=== PATIENT | female | born 1980 | race Caucasian/White ===

== ENCOUNTER 2018-05-02 18:27 | Emergency (ER) | payer OTHER, SELFPAY ==
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
[2018-05-02 19:36] LABS: Barbiturates NEGATIVE (NEGATIVE); Benzodiazepines NEGATIVE (NEGATIVE); Cocaine NEGATIVE (NEGATIVE); METHAMPHETAM NEGATIVE (NEGATIVE); Methadone NEGATIVE (NEGATIVE); Opiates POSITIVE (NEGATIVE); Phencyclidine NEGATIVE (NEGATIVE); THC Cannibis NEGATIVE (NEGATIVE)
[2018-05-02 19:44] LABS: Urine Blood NEGATIVE (NEG); Urine Glucose NEGATIVE (NEG); Urine Protein NEGATIVE (NEG)
[2018-05-02 21:07] LABS: Protime INR 1.03
[2018-05-02 21:14] LABS: Absolute Lymphocytes (CBC) 2.1 K/uL (0.7-4.9); Absolute Monocytes 0.4 K/uL (0.1-1.3); Absolute Neutrophil 2.5 K/uL (1.8-8.0); Basophils % 1.1 % (0-1.3); Eosinophils % 4.1 % (0-4.4); Hematocrit 38.3 % (36.0-45.0); Lymphocytes % 40.1 % (15.3-44.8); MCH 32.7 pg (27.0-35.0); MCV 94.2 fL (80-100); MPV 8.4 fL (7.6-11.3); Monocytes % 8.4 % (3.3-12.3); RBC Red Blood Cell Count 4.07 M/uL (3.86-4.86)
[2018-05-02 21:19] LABS: ALT/SGPT 20 U/L (12-78); AST/SGOT 18 U/L (15-37); Albumin 3.8 g/dL (3.4-5.0); Alkaline Phosphatase 49 U/L (45-117); BUN Blood Urea Nitrogen 12 mg/dL (7-18); Bicarbonate 28 mmol/L (21-32); Bilirubin Direct < 0.1 mg/dL (0-0.2); Bilirubin Total 0.2 mg/dL (0.2-1.0); Glucose Level 92 mg/dL (74-106); Potassium 3.9 mmol/L (3.5-5.1); Protein, Total 7.2 g/dL (6.4-8.2); Sodium Level 148 mmol/L (136-145)
[2018-05-02] MEDS ORDERED: ACETAMINOPHEN 500 MG TAB ONE (21:42)
[2018-05-02 21:43] LABS: Alcohol Serum/Plasma 179 mg/dL (0-3)
[2018-05-02] MEDS ORDERED: NA CHLORIDE 0.9% 1,000 ML ONE (22:12)
--- NOTE | 2018-05-02 22:14 | ER ---
Nurse's Notes [facility] Name: Margaret Brown Age: 37 yrs Sex: Female : 1980 Arrival Date: 05/02/2018 Time: 18:30 Bed 4 Private MD: Diagnosis: Alcohol abuse with intoxication Presentation: 05/02 18:22 Presenting complaint: EMS states: called out for pt unable to walk and AMS. Pupils were sv dilated on EMS arrival. Pt reports drinking wine today. Pt takes Kratom usually daily but pt reports she hasn't had any in 3 days. Transition of care: patient was not received from another setting of care. Onset of symptoms was May 02, 2018. Care prior to arrival: None. 18:22 Method Of Arrival: EMS: [facility] sv 18:22 Acuity: ESTIVEN 2 sv 18:36 Risk Assessment: Do you want to hurt yourself or someone else? Patient reports no ph desire to harm self or others. Initial Sepsis Screen: Does the patient meet any 2 criteria? No. Patient's initial sepsis screen is negative. Does the patient have a suspected source of infection? No. Patient's initial sepsis screen is negative. 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 - Social history:: Smoking status: Patient/guardian denies using tobacco, Patient uses alcohol, on a daily basis. Patient/guardian denies using street drugs, IV drugs. - Ebola Screening: : No symptoms or risks identified at this time. Screenin:36 Abuse screen: Denies threats or abuse. Denies injuries from another. Nutritional ph screening: No deficits noted. Tuberculosis screening: No symptoms or risk factors identified. Fall Risk No fall in past 12 months (0 pts). No secondary diagnosis (0 pts). IV access (20 points). Ambulatory Aid- None/Bed Rest/Nurse Assist (0 pts). Gait- Normal/Bed Rest/Wheelchair (0 pts) Mental Status- Overestimates/Forgets Limitations (15 pts.). Total Tanner Fall Scale indicates Low Risk Score (25-44 pts). Fall prevention measures have been instituted. Side Rails Up X 2 Placed close to Nursing Station Family Present and informed to notify staff if they need to leave bedside As available Patient and Family Educated on Fall Prevention Program and strategies. Assessment: 18:58 General: Appears in no apparent distress. comfortable, well groomed, Behavior is calm, ph cooperative, drowsy, Denies fever, feeling ill. General:. Pain: Complains of pain in right trapezius Pain radiates to right upper arm. Neuro: Level of Consciousness is awake, alert, obeys commands, Oriented to person, place, situation. 19:05 Cardiovascular: Capillary refill < 3 seconds in bilateral fingers Patient's skin is ph warm and dry. Respiratory: Airway is patent Respiratory effort is even, unlabored, Respiratory pattern is regular, symmetrical. GI: No signs and/or symptoms were reported involving the gastrointestinal system. Patient currently denies abdominal pain, nausea, vomiting. Derm: Skin is intact, is healthy with good turgor, Skin is pink, warm \T\ dry. Musculoskeletal: Circulation, motion, and sensation intact. Range of motion: intact in all extremities. 20:00 Reassessment: Patient appears in no apparent distress at this time. Patient A/O x3, lp1 sitting up in bed; States headache at this time. 20:00 Respiratory: Respiratory effort is even, unlabored. Derm: Skin is pink, warm \T\ dry. lp1 21:00 Reassessment: Patient appears in no apparent distress at this time. Patient and/or lp1 family updated on plan of care and expected duration. Pain level reassessed. Patient ambulating to bathroom at this time, states attempting to find ride home. 21:00 Neuro: Gait is steady, Speech is normal, Pupils are PERRLA. lp1 22:00 Reassessment: Patient appears in no apparent distress at this time. No changes from lp1 previously documented assessment. Patient and/or family updated on plan of care and expected duration. Pain level reassessed. 22:57 Reassessment: Charging patient's phone at this time, states she can call a ride when lp1 phone is charged; Patient resting in bed, no further needs. 05/03 01:00 Reassessment: Patient appears in no apparent distress at this time. Patient resting, lp1 eyes closed, respirations unlabored. 02:00 Reassessment: Patient is alert, oriented x 3, equal unlabored respirations, skin lp1 warm/dry/pink. Neuro: Gait is steady, Speech is normal, Pupils are PERRLA. Vital Signs: 05/02 18:33 BP 127 / 70; Pulse 72; Resp 18; Temp 99.0; Pulse Ox 98% ; Weight 63.5 kg; Height 5 ft. ph 1 in. (154.94 cm); Pain 6/10; 19:30 BP 117 / 82; Pulse 66; Resp 16; Pulse Ox 99% on R/A; lp1 20:30 BP 112 / 77; Pulse 62; Resp 16; Pulse Ox 99% on R/A; lp1 21:30 BP 125 / 91; Pulse 65; Resp 16; Pulse Ox 99% on R/A; lp1 23:00 BP 122 / 84; Pulse 67; Resp 16; Pulse Ox 99% on R/A; lp1 05/03 01:00 BP 113 / 79; Pulse 62; Resp 16; Pulse Ox 100% on R/A; Pain 0/10; lp1 05/02 18:33 Body Mass Index 26.45 (63.50 kg, 154.94 cm) ph ED Course: 05/02 18:30 Patient arrived in ED. sv 18:30 Jose Beck PA is PHCP. jr8 18:30 Del Chamberlain MD is Attending Physician. jr8 18:30 Missed attempt(s): 20 gauge in right antecubital area. Bleeding controlled, band aid dh3 applied, catheter tip intact. 18:32 Triage completed. sv 18:34 Arianne Erickson, JP is Primary Nurse. ph 18:34 Arm band placed on left wrist. sv 18:37 Patient has correct armband on for positive identification. Bed in low position. Call ph light in reach. Side rails up X 1. Pulse ox on. NIBP on. Warm blanket given. 19:15 Urine collected: bedpan, clear EKG done, by ED staff, reviewed by Jose ZARATE. dh3 20:45 Missed attempt(s): 22 gauge in right forearm. Inserted saline lock: 22 gauge in left lp1 forearm, using aseptic technique. Blood collected. 21:28 No provider procedures requiring assistance completed. lp1 05/03 02:27 IV discontinued, No redness/swelling at site. Pressure dressing applied. lp1 Administered Medications: 05/02 21:40 Drug: Tylenol 1000 mg Route: PO; lp1 22:56 Follow up: Response: Marked relief of symptoms lp1 22:16 Drug: NS 0.9% 1000 ml Route: IV; Rate: 1000 ml; Site: left forearm; lp1 22:56 Follow up: IV Status: Completed infusion; IV Intake: 1000ml lp1 Intake: 22:56 IV: 1000ml; Total: 1000ml. lp1 Outcome: 22:13 Discharge ordered by MD. umaña 05/03 02:27 Discharged to home ambulatory. lp1 Condition: good Discharge instructions given to patient, Instructed on discharge instructions, Demonstrated understanding of instructions. 02:28 Patient left the ED. lp1 Signatures: Joseline Luna RN RN Saira Freitas RN RN lp1 Jose Beck PA PA jr8 Hall, Patricia, RN RN Tad, Mary [facility] Corrections: (The following items were deleted from the chart) 05/02 18:36 18:33 Pulse 72bpm; Resp 18bpm; Temp 99F; 63.5 kg; Height 5 ft. 1 in.; BMI: 26.4; Pain ph 6/10; sv 19:06 18:58 Neuro: Level of Consciousness is awake, alert, obeys commands, Oriented to ph person, place, time, situation, ph 22:29 21:00 Reassessment: Patient appears in no apparent distress at this time. Patient lp1 and/or family updated on plan of care and expected duration. Pain level reassessed. Patient ambulating to bathroom at this time, states attempting to find ride home lp1
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
--- NOTE | 2018-05-03 09:30 | EKG ---
Test Date: 2018-05-02 Test Time: 19:01:10 Interdisciplinary Professor: CLAUDE MEASUREMENT RESULTS: Intervals: Rate: 68 OR: 134 QRSD: 80 QT: 412 QTc: 438 [place]: P: 29 OR: 134 QRS: -4 T: 25 INTERPRETIVE STATEMENTS: Normal sinus rhythm Normal ECG No previous ECG available for comparison Electronically Signed On 05-03-18 09:27:33 CDT by Will Lizarraga
== END 2018-05-03 02:28 | disposition home or self-care (01) ==
LOC: ER 18:27
DX: F10.129 Alcohol abuse with intoxication, unspecified (principal); Z87.820 Personal history of traumatic brain injury
CPT/HCPCS: 36415; 80048; 80076; 80307; 80320; 80329; 81003; 81025; 85025; 85610; 85730; 93005; 96360; 99284; J7030